=== PATIENT | male | born 1955 | race Caucasian/White ===

== ENCOUNTER → 2023-02-17 | Outpatient (CLI) | payer OTHER, SELFPAY ==
--- NOTE | 2023-02-17 09:15 | MRI_ITS ---
EXAM: MR LUMBAR SPINE WITHOUT INTRAVENOUS CONTRAST CLINICAL INDICATION: pBACK PAIN RADIATING INTO l LEG DIFFICULTY BEARING WEIGHT FOR EXTENDED TIME TECHNIQUE: Multiplanar and multisequence MR images of the lumbar spine without intravenous contrast. COMPARISON: X-ray 01/08/2023. FINDINGS: VERTEBRAE: Vertebral body heights are preserved. Normal vertebral bodies and posterior elements. There is preservation of the normal lumbar lordosis. SPINAL CORD: Unremarkable. Normal position and signal intensity of the conus medullaris. SOFT TISSUES: Unremarkable. DISCS/SPINAL CANAL/NEURAL FORAMINA: T12-L1: Marked disc space narrowing. Mild, noncompressive spondylotic bar. No canal stenosis. Mild foraminal encroachment due to spurring. L1-2: Marked disc space narrowing. Modic type II fatty endplate changes. Mild, noncompressive spondylotic bar. No canal stenosis. Foraminal stenosis is mild on the right and moderate on the left due to spurring. L2-3: Marked disc space narrowing. Mild, noncompressive spondylotic bar. No canal or foraminal stenosis. L3-4: Marked disc space narrowing. Modic type II fatty endplate changes. 3 mm retrolisthesis. Mild, noncompressive spondylotic bar. No canal stenosis. Effacement of the right lateral recess due to spurring. Severe foraminal stenosis bilaterally due to spurring. L4-5: Disc dehydration. 3 mm retrolisthesis. No disc protrusion or canal stenosis. Foraminal stenosis is mild on the left and severe on the right due to spurring. L5-S1: Marked disc space narrowing. 1 cm anterolisthesis. Prior laminectomy and posterior instrumentation. No canal stenosis. Moderate to severe foraminal stenosis due to anterolisthesis. MRI/Spine Lumbar (Routine) IMPRESSION: L5-S1 anterolisthesis and prior surgery. Severe foraminal stenosis L3-4 through L5-S1. Mild listhesis at L3-4. Electronically Signed: Haydee Grossman MD at 23:14 EDT Reading Location ID and State: [id number] / Tel , Service support ,
== END | disposition home or self-care (01) ==
PROVIDERS: PCP Family Medicine; Referring Provider Orthopaedic Surgery; Visit Provider Orthopaedic Surgery
DX: M54.50 Low back pain, unspecified (principal)
CPT/HCPCS: 72148